=== PATIENT | male | born 1950 ===

== ENCOUNTER → 2018-05-15 | Outpatient (CLI) | payer OTHER ==
[~2018-05-15] MED LIST: COUMADIN4 MG PO; GLIMEPIRIDE2 MG PO; LISINOPRIL20 MG PO; METFORMIN HCL1000 M1 PO
== END | disposition home or self-care (01) ==
LOC: NUCLEAR 13:43
DX: I20.1 Angina pectoris with documented spasm (principal); C18.9 Malignant neoplasm of colon, unspecified

== ENCOUNTER 2018-05-20 07:15 | Inpatient (IN) | payer OTHER ==
[~2018-05-20] VITALS: Ht 165.1 cm; Wt 86.2 kg
[2018-05-20] MEDS ORDERED: METFORMIN HCL1000 M1 PO (10:39)
[2018-05-20] MEDS ORDERED: LISINOPRIL20 MG PO (10:39)
[2018-05-20] MEDS ORDERED: GLIMEPIRIDE2 MG PO (10:40)
[2018-05-20] MEDS ORDERED: COUMADIN4 MG PO (10:40)
== END 2018-05-24 16:46 | disposition home or self-care (01) | DRG 357 ==
LOC: O/R 05-22 06:50 → SURG 05-22 06:50 → SURH 05-22 07:15 → SURG 05-22 15:30 → SURH 05-22 15:45 → SURG 05-24 16:46
PROVIDERS: ADMIT Colon & Rectal Surgery
PROC: 0WBF0ZZ Excision of Abdominal Wall, Open Approach (ICD-10-PCS; 2018-05-22)
PROC: 0DBU0ZZ Excision of Omentum, Open Approach (ICD-10-PCS; principal; 2018-05-22 15:45)
DX: C18.2 Malignant neoplasm of ascending colon (principal); C78.6 Secondary malignant neoplasm of retroperitoneum and peritoneum; C79.2 Secondary malignant neoplasm of skin; R18.0 Malignant ascites; Z85.038 Personal history of other malignant neoplasm of large intestine

== ENCOUNTER 2019-03-14 09:30 | Day surgery (SDC) | payer OTHER | END 2019-03-14 17:25 | disposition home or self-care (01) | LOC: AMB-ENDOS 09:30 | DX: C18.2 Malignant neoplasm of ascending colon (principal); K64.1 Second degree hemorrhoids ==